=== PATIENT | female | born 1950 | race Caucasian/White ===

== ENCOUNTER 2018-10-01 07:30 | Outpatient (CLI) | payer MEDICARE, BC ==
[2018-10-01] MEDS ORDERED: Bupivacaine 0.5% 30 ML SDV ONE (08:04)
[2018-10-01] MEDS ORDERED: Triamcinolone Acetonide 40 MG/ML 1 ML MDV ONE (08:04)
[2018-10-01 08:18] VITALS: BP 129/84; PULSE 81
--- NOTE | 2018-10-01 09:09 | ANES ---
DATE OF SERVICE: 10/01/2018 INDICATIONS: Ms. Perez is a 67-year-old female patient, referred to the pain clinic to us by Emelia Miller. She is here today for her trigger points. Please see the orders for the patient's preprocedure diagnosis as well as ICD-10 code. The risks and benefits of the procedure were explained to the patient. She wished to proceed with trigger point injections. TECHNIQUE: I did find 22 noticeable cervical and thoracic trigger points. I injected each of these with 1 to 2 mL of 0.5% Sensorcaine with a Kenalog mixture. I did inject more than 3 muscle groups. Her vital signs remained stable throughout the procedure and nurse was with me for the entire procedure. There were no anesthesia complications noted. She is going to return in 3 weeks for trigger point injections. She was discharged from the [facility] per protocol. Otto Webb CRNA /[id number]
== END 2018-10-01 08:20 | disposition home or self-care (01) ==
LOC: JP.PAIN 07:30
PROVIDERS: ATTEND Physician Assistant Medical
DX: M60.9 Myositis, unspecified (principal); M53.2X7 Spinal instabilities, lumbosacral region; M53.3 Sacrococcygeal disorders, not elsewhere classified
CPT/HCPCS: 20553; J3301; J3490

== ENCOUNTER 2018-11-12 07:34 | Outpatient (CLI) | payer MEDICARE, BC ==
[~2018-11-12 07:34] MED LIST: Bupivacaine 0.25% 10 ML SDV ONE; Bupivacaine 0.5% 30 ML SDV ONE; methylPREDNISolone Acetate 40 MG/ML SDV ONE
[2018-11-12 08:03] VITALS: BP 130/70; PULSE 101
--- NOTE | 2018-11-12 17:41 | ANES ---
DATE OF SERVICE: 11/12/2018 INDICATION: Mrs. Perez is a 67-year-old female patient, referred to the Pain Clinic to us by Emelia Miller. She is here today for an epidural steroid injection as well as trigger points. Please see the orders for the patient's preprocedure diagnosis as well as ICD-10 code. The risks and benefits of the procedure were explained to the patient. She wished to proceed with an epidural steroid injection as well as triggers. TECHNIQUE: I placed the epidural to the L5-S1 using a 17-gauge Tuohy needle in loss of resistance technique after Betadine prep x3 and 1% lidocaine skin local was used. The epidural had very good feel throughout, and the epidural space was easily identified. There was negative CSF, negative blood, and negative paresthesias noted. Therefore, 40 mg of Depo- Medrol and 2 mL of 0.25% Sensorcaine with 7 mL preservative-free normal saline were injected with ease. The patient tolerated the epidural procedure very nicely. Attention was then turned to the trigger points, where I did find 20 noticeable cervical and thoracic trigger points. I injected each of these with 1 to 2 mL of 0.5% Sensorcaine. I did inject more than 3 muscle groups. She tolerated the procedure very nicely. Her vital signs remained stable throughout the procedure and nurse was with me for the entire procedure. There were no anesthesia complications noted. She is going to return in 2 weeks for trigger point injections. She was discharged from the [facility] per protocol. Otto Webb CRNA /[id number]
== END 2018-11-12 08:30 | disposition home or self-care (01) ==
LOC: JP.PAIN 07:34
PROVIDERS: ATTEND Physician Assistant Medical
DX: M51.36 Other intervertebral disc degeneration, lumbar region (principal); M60.9 Myositis, unspecified; M53.2X7 Spinal instabilities, lumbosacral region; M53.3 Sacrococcygeal disorders, not elsewhere classified
CPT/HCPCS: 20553; 62322; J1030; J3490

== ENCOUNTER 2018-12-17 07:29 | Outpatient (CLI) | payer MEDICARE, BC ==
[2018-12-17] MEDS ORDERED: Bupivacaine 0.5% 30 ML SDV ONE (07:33)
[2018-12-17 08:19] VITALS: BP 119/81; PULSE 85
--- NOTE | 2018-12-17 13:13 | ANES ---
DATE OF SERVICE: 12/17/2018 Alvaro is a 68-year-old female patient, referred to us by Emelia Miller for trigger point injections today. Alvaro has had them several times in the past and is well aware of the risks and benefits and wishes to proceed with trigger point injections today. Please refer to the doctor's notes for ICD-10 code and diagnosis. The patient was then sat at the edge of the bed. She was wanting me to focus on upper part of her back, bilateral trapezius muscles, and at the base of her skull at the occipital area because she was having headaches, and also around her right-sided thoracotomy scar. I was able to easily identify approximately 12 to 13 trigger points across her occipital, down both sides of her neck, and bilateral trapezius muscles. 1 to 2 mL of 0.5% Sensorcaine was injected to those areas. I then turned my attention to her right thoracotomy scar, where I was able to easily identify 5 trigger points and injected 1 to 2 mL of 0.5% Sensorcaine into those areas. Alcohol was used to clean the skin prior to injections. More than 3 muscle groups were injected today. The patient tolerated the procedure without difficulty. Please refer to the nurse's notes for vital signs. After the appropriate amount of time, the patient will be discharged per [facility] protocol. Wu Butcher CRNA /[id number]
== END 2018-12-17 08:20 | disposition home or self-care (01) ==
LOC: JP.PAIN 07:29
PROVIDERS: ATTEND Physician Assistant Medical
DX: M60.9 Myositis, unspecified (principal); M53.2X7 Spinal instabilities, lumbosacral region; M53.3 Sacrococcygeal disorders, not elsewhere classified
CPT/HCPCS: 20553; J3490